=== PATIENT | female | born 1960 ===

== ENCOUNTER 2017-03-19 14:55 | Inpatient (IN) ==
[2017-03-19] MEDS ORDERED: ONDANSETRON 4 MG/2 ML VIAL IV STA (15:15)
[2017-03-19] MEDS ORDERED: HYDROmorphone 2 MG/1 ML VIAL IV STA (15:15)
[2017-03-19] MEDS ORDERED: HYDROmorphone 2 MG/1 ML VIAL ONE (15:19)
[2017-03-19] MEDS ORDERED: ONDANSETRON 4 MG/2 ML VIAL ONE ×2 (15:19→20:14)
--- NOTE | 2017-03-19 15:19 | Emergency Department Note ---
Darian Franco Brooke, am scribing for, and in the presence of, Torres Caruso MD 15:12 . Zuly Franco James D, MD, personally performed the services described in this documentation, ascribed by Jamila Farmer in my presence, and it is both accurate and complete 518 . Arrival - Arrival Chief Complaint: Abscess ED Nursing Triage Note: pt was transfered from [facility] for the perirectal abscess Mode of Arrival: Stretcher Limitations: No Limitations Source: Patient, EMS, RN Notes Reviewed Time Seen by Provider: 03/19/17 15:07 - History of Present Illness HPI Narrative: Patient is a 56 year old female brought into the ED by EMS, from [facility], with c/o perirectal abscess. Patient says it is painful. She says she has had a fever. Her temperature during triage was 98.0. Patient denies having any abdominal pain. She has not had anything to eat or drink today. Patient has PMHx of HTN and NIDDM. Allergies/Adverse Reactions: Allergies Allergy/AdvReac Type Severity Reaction Status Date / Time No Known Allergies Allergy Unverified 03/19/17 15:04 Review of System - Review of System 12 point system: reviewed and no additional remarkable complaints except as stated - Review of System Constitutional: Present: fever Respiratory: Absent: respiratory distress Gastrointestinal: Present: other (perirectal abscess). Absent: abdominal pain Skin: Absent: rash Medical,Surgical,& Family Hx - Medical History Cardio: History of: Hypertension Endocrine: History of: Diabetes Mellitus (NIDDM) - Social History Smoking Status: Never smoker Frequency of Alcohol Use: None Type of Drug Use: None Exam Vital Signs: Vital Signs Temperature 98.0 F 03/19/17 14:59 Pulse Rate 116 H 03/19/17 14:59 Respiratory Rate 18 03/19/17 14:59 Blood Pressure 173/113 03/19/17 14:59 O2 Sat by Pulse Oximetry 95 03/19/17 14:59 GENERAL: This is a well-nourished well-developed female in no apparent distress. VITAL SIGNS: Reviewed HEENT: Head is atraumatic and normocephalic. Pupils are equal round react to light. Extraocular movements are intact. Oropharynx is benign with moist mucous membranes. NECK: Neck is soft and supple without tenderness. There are no masses. There is no lymphadenopathy. LUNGS: Lungs are clear to auscultation. Chest rises symmetrically. There is no chest wall tenderness. CV: Heart is regular rate and rhythm without murmurs rubs or gallops. ABDOMEN: Abdomen is soft, nontender to palpation. There are no abdominal abnormal masses palpated. There is no organomegaly. Bowel sounds are present and active. Rectal: Patient has erythematous, indurated area to the left of the midline which is markedly tender to palpation. SKIN: Skin is warm and dry. No rash. EXTREMITIES: Patient has full range of motion without tenderness. There is no pedal edema. NEUROLOGIC: Awake, alert, oriented 4. Cranial nerves II through XII are grossly intact. Motor is 5 over 5 in all extremities bilaterally. Course - Consultations Consultation #1: Discussed with Dr. liang. Patient will be admitted to his service. Initial orders written for him. He will assume patient's care upon arrival to the [facility]. Time: 15:18 Disposition Clinical Impression: Perirectal abscess, Diabetes mellitus Case discussed with: patient Disposition: Still a Patient Condition: Stable
[2017-03-19] MEDS ORDERED: CLINDAMYCIN INJ 900 MG in PREMIX 1 EACH IV ONE (16:55)
[2017-03-19] MEDS ORDERED: LACTATED RINGERS 1,000 ML IV ONE (16:56)
--- NOTE | 2017-03-19 16:58 | General Surg History&Physical ---
Assessment and Plan (1) Perirectal abscess Status: Acute Assessment and plan: This patient has a perirectal abscess. I recommended incision and drainage of rectal exam under anesthesia. I discussed the risks, benefits, and alternatives of the operation with the patient, and the expected outcomes have been reviewed. The patient like to proceed with the operation Current Visit: Yes History of Present Illness Chief complaint: Perirectal abscess History of present illness: Ms. Billy is a 56 year old female who has a history of diabetes and was transferred to [place] for management of an abscess in the perirectal space. She states she has had pain for several days now and presented to the ER for evaluation. CT was done in the outside hospital but clinically she has an obvious abscess in her perirectal area. She is very tender here. Home Medications Medication Instructions Recorded Confirmed Type No Known Home Medications [No 03/19/17 03/19/17 History Known Home Medications] Allergies Allergy/AdvReac Type Severity Reaction Status Date / Time No Known Allergies Allergy Unverified 03/19/17 15:04 Medical,Surgical,& Family Hx - Medical History Cardio: History of: Hypertension Endocrine: History of: Diabetes Mellitus (NIDDM) - Social History Smoking Status: Never smoker Frequency of Alcohol Use: None Type of Drug Use: None Exam - Constitutional General appearance: no acute distress, over weight - Head Head exam: Present: normal inspection, normocephalic - Eye Eye exam: Present: EOMI Pupils: Present: JAMES - ENT ENT exam: Present: normal exam Mouth exam: Present: normal external inspection, normal voice - Neck Neck exam: Present: normal inspection, trachea midline - Respiratory Respiratory exam: Present: clear to auscultation bilaterally. Absent: accessory muscle use, chest wall tenderness - Cardiovascular Cardiovascular exam: Present: tachycardia. Absent: irregular rhythm, RRR, systolic murmur - GI/Abdominal GI/Abdominal exam: Present: soft. Absent: tenderness, rebound - Anus/Rectum Anus/Rectum: other (Large perirectal abscess is present) - Extremities Exam Extremities exam: Present: normal inspection, normal capillary refill - Back Exam Back exam: Present: normal inspection - Neurological Exam Neurological exam: Present: alert, oriented X3 Speech: Present: normal - Skin Skin exam: Present: normal color, warm - Constitutional Constitutional: Present: as per HPI - EENT Nose, mouth and throat: Present: as per HPI - Cardiovascular Cardiovascular: Present: as per HPI - Respiratory Respiratory: Present: as per HPI - Gastrointestinal Gastrointestinal: Present: as per HPI - Genitourinary Genitourinary: Present: as per HPI - Musculoskeletal Musculoskeletal: Present: as per HPI - Neurological Neurological: Present: as per HPI - Endocrine Endocrine: Present: as per HPI Hematologic/Lymphatic: Present: as per HPI Results - Diagnostic Findings Procedure: CT Abdomen and Pelvis: image reviewed by me, report reviewed by me ( Perirectal abscess)
[2017-03-19] MEDS ORDERED: DEXTROSE 50% 25 GM/50 ML VIAL IV PRN (17:07)
[2017-03-19] MEDS ORDERED: GLUCAGON 1 MG VIAL IM PRN (17:07)
[2017-03-19] MEDS ORDERED: ONDANSETRON 4 MG/2 ML VIAL IV PRN (17:07)
[2017-03-19] MEDS ORDERED: ACETAMINOPHEN 325 MG TABLET PO PRN (17:07)
[2017-03-19] MEDS ORDERED: HYDROmorphone 2 MG/1 ML VIAL IV PRN (17:07)
[2017-03-19] MEDS: INSULIN LISPRO 100 UNIT/ML SUBCUT SCH ×2 (17:43→21:53)
[2017-03-19] MEDS: LACTATED RINGERS 1,000 ML IV SCH (18:43)
[2017-03-19] MEDS: LEVOFLOXACIN INJ 750 MG in PREMIX 1 EACH IV SCH (18:43)
--- NOTE | 2017-03-19 19:56 | Operative Note ---
Date of procedure: 03/19/17 Pre-op diagnosis: Perirectal abscess Post-op diagnosis: same Procedure: Preoperative diagnosis Perirectal abscess Postoperative diagnosis Horseshoe perirectal abscess Procedures performed 1. Rectal exam under anesthesia 2. Incision and drainage of horseshoe perirectal abscess Findings A large horseshoe perirectal abscess was drained externally and a Darlene drain was placed through a counterincision on the contralateral side of the anal margin. A large amount of pus was drained and cultures were sent to the lab. Specimen Cultures from perirectal abscess Complications None apparent Indications Large perirectal abscess Description of procedure The patient was taken to the operating room and transferred to the operating table in supine position. General endotracheal anesthesia was administered and SCDs were placed lower extremities. The patient was placed in lithotomy position. The perineum was prepped with Betadine and draped sterilely. Preoperative antibiotics were administered, and a timeout was performed. Rectal exam was performed which demonstrated a large perirectal abscess that had a horseshoe orientation. This was drained externally on the right side of the anal margin and a large amount of pus was drained. Loculations are broken up with digital examination and the abscess tracked over as a horseshoe abscess would across to the contralateral side of the rectum. A contralateral counterincision was made on the right side of the anal margin and the Dorsey drain was placed quarter inch in size connecting these 2. It was sewn to itself using 2-0 nylon suture. The wound was then completely irrigated and packed with wet-to-dry dressing using a Kerlix roll. Wound was dressed sterilely and mesh underwear was placed. The patient was awakened from anesthesia and transferred to recovery. Postoperative plan Wound care and antibiotics Follow-up cultures Implants: darlene drain packing gauze Anesthesia: JAMES Surgeon / Physician: Chriss Platt Estimated blood loss: minimal Specimens: other (cultures) Condition: stable Disposition: PACU Discharge Plan - Discharge Medications No Action No Known Home Medications [No Known Home Medications] - Follow Up or Referral - Forms/Instructions
[2017-03-19] MEDS ORDERED: MIDAZOLAM 2 MG/2 ML VIAL ONE (20:14)
[2017-03-19] MEDS ORDERED: PROPOFOL 200 MG/20 ML VIAL IV ONE (20:14)
[2017-03-19] MEDS ORDERED: fentaNYL 100 MCG/2 ML VIAL ONE (20:14)
[2017-03-19] MEDS ORDERED: KETOROLAC 30 MG/1 ML VIAL ONE (20:15)
[2017-03-19] MEDS ORDERED: SEVOFLURANE 1 UNIT/15 MINUTE INH ONE (20:15)
[2017-03-19] MEDS ORDERED: LACTATED RINGERS 2,000 ML IV ONE (20:40)
[2017-03-19] MEDS: metroNIDAZOLE INJ 500 MG in PREMIX 1 EACH IV SCH (21:55)
--- NOTE | 2017-03-19 22:10 | Anesthesia Post-Op ---
Anesthesia Post OP - Post Ansesthetic Evaluation Patient seen in post op: Yes Resp: within normal limits CV: within normal limits Mental: within normal limits Temp: within normal limits [id number]: within normal limits Nausea and Vomiting: within normal limits Pain: within normal limits
[2017-03-20] MEDS: LACTATED RINGERS 1,000 ML IV SCH ×4 (02:22→22:28)
[2017-03-20] MEDS: metroNIDAZOLE INJ 500 MG in PREMIX 1 EACH IV SCH ×3 (06:15→20:20)
[2017-03-20 06:59] LABS: Basophils % 0.2 % (0.0-0.8); Hemoglobin 11.4 GM/DL (12.0-16.0); Immature Granulocytes % 1.4 %; Lymphocytes # 0.7 10*3/uL (1.4-4.0); Lymphocytes % 3.3 % (21.3-54.2); Mean Corpuscular HGB Conc 34.5 GM/DL (32-36); Mean Corpuscular Hemoglobin 32 PG (27-34); Mean Corpuscular Volume 91.4 FL (87-102); Mean Platelet Volume 10.1 FL (9.6-12.0); Monocytes # 1.6 10*3/uL (0.11-0.8); Monocytes % 7.2 % (1.7-12.7); Neutrophils # 18.9 10*3/uL (1.4-7.4); Neutrophils % 87.9 % (38.7-73.9); Platelet Count 213 T/CUMM (130-400); Red Blood Count 3.61 MC/CUMM (3.8-5.5); Red Cell Distribution Width 12.1 % (9.3-17.3); White Blood Count 21.5 T/CUMM (4-12)
[2017-03-20 07:29] LABS: Band Neutrophils 9 % (0-10); Eosinophils 1 % (0-10); Hypochromasia Slight; Lymphocytes 8 % (20-55); Segmented Neutrophils 79 % (50-85); Total Cells Counted 100
[2017-03-20 07:30] LABS: Platelet Estimate Adequate
[2017-03-20 08:10] LABS: Calcium 7.9 MG/DL (8.5-10.1); Osmolality,Calculated 289.1 MOS/KG (273-304); Potassium 4.3 MMOL/L (3.5-5.1)
[2017-03-20] MEDS: INSULIN LISPRO 100 UNIT/ML SUBCUT SCH ×4 (08:34→21:27)
[2017-03-20] MEDS: PANTOPRAZOLE 40 MG TABLET PO SCH (08:38)
--- NOTE | 2017-03-20 08:48 | Event Note ---
General Surgery Progress Note Chief complaint This patient is a 56-year-old woman with diabetes who is admitted with perirectal abscess and taken to the operating room on 03/20/2017 for incision and drainage of perirectal abscess Interval history The patient developed hypotension and tachycardia in the recovery room and was febrile to 103. She is transferred to the ICU overnight for monitoring. She is doing well this morning. Her vital signs have normalized. She feels much better today. Physical exam Afebrile currently, normal vital signs Chest is clear Heart is regular Perirectal abscess site is clean with no evidence of ongoing or deep undrained infection Labs Reviewed, white blood cell count 22,000 Creatinine 1.2 Imaging None new Assessment and plan This patient is now recovering from perirectal abscess drainage. We will continue wound care and antibiotics. Will follow up final cultures and initial Gram stain is shown gram-positive cocci Transfer to floor Diabetic diet and insulin as needed DVT chemoprophylaxis
[2017-03-20] MEDS: ENOXAPARIN 40 MG/0.4 ML SYRINGE SUBCUT SCH (10:43)
[2017-03-20] MEDS: LEVOFLOXACIN INJ 750 MG in PREMIX 1 EACH IV SCH (17:18)
[2017-03-21] MEDS: metroNIDAZOLE INJ 500 MG in PREMIX 1 EACH IV SCH ×3 (02:47→19:00)
[2017-03-21 03:23] LABS: Basophils % 0.1 % (0.0-0.8); Eosinophils % 0.1 % (0.00-10.9); Hematocrit 30.4 VOL% (35.7-47.0); Hemoglobin 10.3 GM/DL (12.0-16.0); Immature Granulocytes % 1.2 %; Lymphocytes # 1.3 10*3/uL (1.4-4.0); Lymphocytes % 8.2 % (21.3-54.2); Mean Corpuscular HGB Conc 33.9 GM/DL (32-36); Mean Corpuscular Hemoglobin 31 PG (27-34); Mean Corpuscular Volume 90.5 FL (87-102); Mean Platelet Volume 11.1 FL (9.6-12.0); Monocytes # 1.2 10*3/uL (0.11-0.8); Monocytes % 7.1 % (1.7-12.7); Neutrophils # 13.7 10*3/uL (1.4-7.4); Neutrophils % 83.3 % (38.7-73.9); Platelet Count 218 T/CUMM (130-400); Red Blood Count 3.36 MC/CUMM (3.8-5.5); Red Cell Distribution Width 12.2 % (9.3-17.3); White Blood Count 16.4 T/CUMM (4-12)
[2017-03-21 03:27] LABS: Calcium 7.7 MG/DL (8.5-10.1); Magnesium 1.8 MG/DL (1.8-2.4); Osmolality,Calculated 285.1 MOS/KG (273-304); Potassium 3.9 MMOL/L (3.5-5.1)
[2017-03-21 04:20] LABS: Lymphocytes 15 % (20-55); Segmented Neutrophils 81 % (50-85); Total Cells Counted 100
[2017-03-21 04:21] LABS: Platelet Estimate Normal
--- NOTE | 2017-03-21 07:12 | Event Note ---
General Surgery Progress Note Chief complaint This patient is a 56-year-old woman with diabetes who is admitted with perirectal abscess and taken to the operating room on 03/20/2017 for incision and drainage of perirectal abscess Interval history The patient is doing well today. No further fevers. Labs are improving with downtrending white blood cell count and normal creatinine. Pain is well controlled. Cultures show also gram-positive cocci but no final cultures yet. Physical exam Afebrile currently, normal vital signs Chest is clear Heart is regular Perirectal abscess site is clean with no evidence of ongoing or deep undrained infection. There is still some induration and redness on the left side of the buttocks. Labs Reviewed, white blood cell count is down to 16,000 Creatinine is normal Imaging None new Assessment and plan Continue antibiotics and wound care. Await final cultures and continue inpatient management until cellulitis and induration is improving more. Sitz bath 3 times daily and after each bowel movement. Continue current antibiotics for now
[2017-03-21] MEDS: INSULIN LISPRO 100 UNIT/ML SUBCUT SCH ×4 (08:07→21:57)
[2017-03-21] MEDS: PANTOPRAZOLE 40 MG TABLET PO SCH (08:08)
[2017-03-21] MEDS: ENOXAPARIN 40 MG/0.4 ML SYRINGE SUBCUT SCH (08:08)
[2017-03-21] MEDS: LEVOFLOXACIN INJ 750 MG in PREMIX 1 EACH IV SCH (18:25)
[2017-03-22] MEDS: metroNIDAZOLE INJ 500 MG in PREMIX 1 EACH IV SCH ×2 (02:21→10:00)
[2017-03-22 04:43] LABS: Basophils % 0.2 % (0.0-0.8); Eosinophils % 0.3 % (0.00-10.9); Hematocrit 29.7 VOL% (35.7-47.0); Hemoglobin 10.1 GM/DL (12.0-16.0); Immature Granulocytes % 0.7 %; Immature Granulocytes Absolute 0.07 #; Lymphocytes # 1.6 10*3/uL (1.4-4.0); Lymphocytes % 15.3 % (21.3-54.2); Mean Corpuscular Hemoglobin 31 PG (27-34); Mean Corpuscular Volume 90.8 FL (87-102); Mean Platelet Volume 10.4 FL (9.6-12.0); Monocytes # 0.9 10*3/uL (0.11-0.8); Monocytes % 8.2 % (1.7-12.7); Neutrophils # 7.8 10*3/uL (1.4-7.4); Neutrophils % 75.3 % (38.7-73.9); Platelet Count 237 T/CUMM (130-400); Red Blood Count 3.27 MC/CUMM (3.8-5.5); Red Cell Distribution Width 12.1 % (9.3-17.3); White Blood Count 10.4 T/CUMM (4-12)
--- NOTE | 2017-03-22 07:14 | Discharge Summary ---
Hospital Course - Hospital Course Hospital Course: This patient was evaluated with perirectal abscess and treated with incision and drainage in the operating room with Berhane drain placement for horseshoe abscess. She spent a night in ICU for some hypotension and developed postoperative fever but this resolved and she was treated with antibiotics and wound care. Her cellulitis resolved and her white blood cell count normalized. She was discharged home with follow-up with me in clinic in 1 week. She will follow-up with the [facility] for management of her diabetes Diagnosis - Discharge Diagnosis (1) Perirectal abscess Status: Acute Specialty Discharge - Follow Up or Referrals Follow up with: Chriss Platt MD [Physician] - Discharge Plan - Discharge Data Disposition: Disch To Home/Self Care Condition at Discharge: Stable Discharge Diet: advance to your usual diet Activity: resume usual activities as tolerated Hygiene: may shower Weight Bearing at Discharge: full weight bearing Driving: not until seen by doctor Contact your physician if you experience:: fever over 101, Difficulty voiding, Redness or swelling, Nausea/Vomiting, Shortness of breath, Bleeding, pain uncontrolled by pain medications Wound / Dressing Care Instructions: Sitz bath 3 times daily and after each bowel movement. Wash wound aggressively during sitz bath. - Discharge Medications New HYDROcodone/ACETAMIN 7.5-325 [[place] 7.5-325] 1 tablet PO Q4H PRN #15 tablet PRN Reason: Pain Moderate (4-7) Levofloxacin Tab [Levaquin Tab] 750 mg PO DAILY #14 tablet metroNIDAZOLE TAB [Flagyl Cap/Tab] 500 mg PO TID #42 tablet - Follow Up or Referral Follow Up: Chriss Platt MD [Physician] - 1 Week - Forms/Instructions Instructions: Abscess (GEN) Exam - Constitutional Vitals: Period Temp Pulse Resp BP Sys/Mayo Pulse Ox Last 24 Hr 98.3 F-100.6 F 78-96 16-18 142-169/69-95 95-97 General appearance: no acute distress, over weight - Head Head exam: Present: normal inspection, normocephalic - Eye Eye exam: Present: EOMI Pupils: Present: JAMES - ENT ENT exam: Present: normal exam - Neck Neck exam: Present: normal inspection - Respiratory Respiratory exam: Present: clear to auscultation bilaterally. Absent: accessory muscle use, chest wall tenderness - Cardiovascular Cardiovascular exam: Present: regular rate and rhythm. Absent: systolic murmur , tachycardia - GI/Abdominal GI/Abdominal exam: Present: soft. Absent: tenderness, rebound - Extremities Exam Extremities exam: Present: normal inspection, normal capillary refill - Back Exam Back exam: Present: normal inspection, other (Berhane drain is in place. Perirectal abscess has no further purulent drainage and decreased cellulitis every day) - Neurological Exam Neurological exam: Present: alert, oriented X3 - Psychiatric Psychiatric exam: Present: normal affect, normal mood - Skin Skin exam: Present: normal color, warm Discharge Results Procedures and tests throughout hospitalization: Pending Orders 03/19/17 Abscess Culture Routine 03/19/17 21:25 Blood Culture Stat Labs on day of discharge: Labs from last 24 hours 03/22/17 03/21/17 03/21/17 04:17 19:20 15:32 WBC 10.4 D RBC 3.27 L Hgb 10.1 L Hct 29.7 L MCV 90.8 MCH 31 MCHC 34.0 RDW 12.1 Plt Count 237 MPV 10.4 Neut % (Auto) 75.3 H Lymph % (Auto) 15.3 L Gem % (Auto) 8.2 Eos % (Auto) 0.3 Baso % (Auto) 0.2 Neut # (Auto) 7.8 H Lymph # (Auto) 1.6 Gem # (Auto) 0.9 H Eos # (Auto) 0.0 Baso # (Auto) 0.0 Immature Gran % 0.7 Nucleated RBC % 0.0 Immature Gran # 0.07 Nucleated RBCs # 0.00 POC Glucose 235 H 219 H 03/21/17 03/21/17 12:03 07:03 WBC RBC Hgb Hct MCV MCH MCHC RDW Plt Count MPV Neut % (Auto) Lymph % (Auto) Gem % (Auto) Eos % (Auto) Baso % (Auto) Neut # (Auto) Lymph # (Auto) Gem # (Auto) Eos # (Auto) Baso # (Auto) Immature Gran % Nucleated RBC % Immature Gran # Nucleated RBCs # POC Glucose 215 H 160 H Preliminary micro results at discharge 03/19/17 Unknown Abscess Culture - Preliminary Anus Gram Positive Cocci Microstrep plus panel 1 Gram Negative Rods 03/19/17 21:25 Blood Culture - Preliminary Blood Gram Positive Cocci 03/19/17 21:25 Blood Culture - Preliminary Blood No growth at 1 day DS: Provider Date of admission: 03/19/17 15:12 Primary care physician: Lindsey Recinos MD Attending physician on admission: Chriss Platt MD Consults: 03/19/17 16:55 Consult to Anesthesiology [CONS] Routine Consulting Provider: Reason for Anesthesiology: Pre-op Clearance 03/19/17 17:28 Consult to Pastoral Services [CONS] Routine Comment: Pastoral Screen: Request Biogeographer Visit Pastoral Screen Source of Request: Patient Discharging clinician: Chriss Platt MD Expected date of discharge: 03/22/17
[2017-03-22] MEDS: INSULIN LISPRO 100 UNIT/ML SUBCUT SCH ×2 (07:31→12:54)
[2017-03-22 07:47] VITALS: BP 166/84
[2017-03-22] MEDS: ENOXAPARIN 40 MG/0.4 ML SYRINGE SUBCUT SCH (08:20)
[2017-03-22] MEDS: PANTOPRAZOLE 40 MG TABLET PO SCH (08:20)
== END 2017-03-22 11:15 | disposition home or self-care (01) | DRG 395 ==
LOC: EDBD → EDUNIT# → N.ED 14:55 → N.EDINP 15:12 → N.3E 15:46 → N.ICU 20:46 → N.3E 03-20 11:01
PROVIDERS: ADMIT Surgery; ATTEND Surgery